=== PATIENT | male | born 1955 | race Caucasian/White ===

== ENCOUNTER → 2018-08-23 | Outpatient (CLI) | payer OTHER ==
[~2018-08-23] MED LIST: LISINOPRIL20 MG PO
== END ==
LOC: CAT 09:51
DX: E78.00 Pure hypercholesterolemia, unspecified (principal); Z82.49 Family history of ischemic heart disease and other diseases of the circulatory system

== ENCOUNTER → 2018-10-21 | Outpatient (CLI) | payer BC, OTHER ==
--- NOTE | 2018-10-21 12:49 | 2DMMODE ---
[facility] [place] [address] 2 D/M-MODE ECHOCARDIOGRAM Name: JEFFREYSRUTHIJUDE MATHEW Room #: REG [facility]#: [id number] Admission: 10/21/18 Attend Phys: Giovanni Clarke MD Discharge: Date of : 57 Date of Service: 10/21/18 1249 Report #: [id number] THIS REPORT FOR: //name// APPROVED REPORT Study performed: 10/21/2018 11:18:04 EXAM: Comprehensive 2D, Doppler, and color-flow Echocardiogram Patient Location: Out-Patient Status: routine BSA: 1.90 HR: 75 bpm BP: 120/78 mmHg Rhythm: NSR Other Information Study Quality: Good Indications High calcium score. Hx: HTN, HLP, DM, tobacco abuse 2D Dimensions RVDd: 38.48 mm IVSd: 9.75 (7-11mm) LVOT Diam: 21.44 (18-24mm) LVDd: 48.42 mm PWd: 9.35 (7-11mm) Ascending Ao: 31.44 (22-36mm) LVDs: 36.87 (25-40mm) Aortic Root: 32.45 mm Volumes Left Atrial Volume (Systole) Single Plane 4CH: 25.50 mL Single Plane 2CH: 40.71 mL LA ESV Index: 18.00 mL/m2 Aortic Valve AoV Peak Jozef.: 1.36 m/s AO Peak Gr.: 7.42 mmHg LVOT Max P.20 mmHg LVOT Max V: 0.89 m/s THOMAS Vmax: 2.37 cm2 Mitral Valve E/A Ratio: 1.3 MV Decel. Time: 190.75 ms MV E Max Jozef.: 0.62 m/s MV A Jozef.: 0.47 m/s [facility] [place] [address] 2 D/M-MODE ECHOCARDIOGRAM Name: SRUTHI MURPHY Room #: REG [facility]#: [id number] Admission: 10/21/18 Attend Phys: Giovanni Clarke MD Discharge: Date of : 57 Date of Service: 10/21/18 1249 Report #: [id number] PHT: 55.32 ms IVRT: 83.04 ms Pulmonary Valve PV Peak Jozef.: 1.09 m/s PV Peak Gr.: 4.79 mmHg Tricuspid Valve TR Peak Jozef.: 2.42 m/s RAP Estimate: 5.00 mmHg TR Peak Gr.: 23.48 mmHg PA Pressure: 28.00 mmHg Left Ventricle The left ventricle is normal size. There is normal LV segmental wall motion. There is normal left ventricular wall thickness. Left ventricular systolic function is normal. LVEF is 50-55%. Moderate diastolic dysfunction is present (pseudonormal filling). Right Ventricle The right ventricle is normal size. The right ventricular systolic function is normal. Atria The left atrium size is normal. The right atrium size is normal. Aortic Valve The aortic valve is normal in structure. Mild aortic regurgitation. There is no aortic valvular stenosis. Mitral Valve The mitral valve is normal in structure. Mild mitral regurgitation. No evidence of mitral valve stenosis. Tricuspid Valve The tricuspid valve is normal in structure. Trace tricuspid regurgitation. Estimated PAP is 28mmHg. Pulmonic Valve The pulmonary valve is normal in structure. Mild pulmonic regurgitation. Great Vessels The aortic root is normal in size. The ascending aorta is normal in size. IVC is [facility] [place] [address] [place] [address] 2 D/M-MODE ECHOCARDIOGRAM Name: SRUTHI MURPHY Room #: REG [facility]#: [id number] Admission: 10/21/18 Attend Phys: Giovanni Clarke MD Discharge: Date of : 57 Date of Service: 10/21/18 1249 Report #: [id number] normal in size and collapses >50% with inspiration. Pericardium There is no pericardial effusion. <Conclusion> The left ventricle is normal size. There is normal left ventricular wall thickness. Left ventricular systolic function is normal. Moderate diastolic dysfunction is present (pseudonormal filling). The right ventricle is normal size. The left atrium size is normal. Mild aortic regurgitation. Mild mitral regurgitation. Trace tricuspid regurgitation. Estimated PAP is 28mmHg. <ELECTRONICALLY SIGNED> By: Giovanni Clarke MD 10/21/18 1249 1249 1249 Giovanni Clarke MD /INF
== END ==
LOC: CV 07:36
DX: I08.0 Rheumatic disorders of both mitral and aortic valves (principal); R93.1 Abnormal findings on diagnostic imaging of heart and coronary circulation; I10 Essential (primary) hypertension; E78.5 Hyperlipidemia, unspecified; E11.9 Type 2 diabetes mellitus without complications; Z87.891 Personal history of nicotine dependence

== ENCOUNTER → 2020-10-25 | Outpatient (CLI) | payer BC, OTHER | LOC: LAB 09:16 | PROVIDERS: ATTEND Family Medicine | DX: R05 Cough (principal); J02.9 Acute pharyngitis, unspecified; Z20.822 Contact with and (suspected) exposure to COVID-19 ==